=== PATIENT | female | born 1975 | race Caucasian/White ===

== ENCOUNTER 2019-11-24 12:21 | Emergency (ER) | payer OTHER ==
[2019-11-24 12:30] VITALS: BMI 25.7
--- NOTE | 2019-11-24 12:50 | PDOC ---
History of Present Illness - General Chief Complaint: Revisit, Lab Variance Stated Complaint: ABNORMAL LAB RESULT Time Seen by Provider: 11/24/19 12:49 History Source: Patient Exam Limitations: No Limitations Past History - Travel History Traveled outside of the country in the last 30 days: No Close contact w/someone who was outside of country & ill: No - Medical History Allergies/Adverse Reactions: Allergies Allergy/AdvReac Type Severity Reaction Status Date / Time No Known Allergies Allergy Verified 11/24/19 12:25 Home Medications: Ambulatory Orders NK [No Known Home Medication] 11/24/19 Anemia: Yes COPD: No Other medical history: Fibroids - Surgical History Abdominal Surgery: Yes (fibroids) - Psycho-Social/Smoking History Smoking History: Never smoked - Substance Abuse Hx (Audit-C & DAST Scrn) How often the patient has a drink containing alcohol: Monthly or less Score: In Men: 4 or > Positive; In Women: 3 or > Positive: 1 Screen Result (Pos requires Nsg. Audit-10AR): Negative In the last yr the pt used illegal drug/Rx for NonMed reason: No Score: Yes response is considered Positive: 0 Screen Result (Positive result requires Nsg. DAST-10): Negative Review of Systems - Review of Systems Able to Perform ROS?: Yes Comments:: 11/24/19 16:03 CONSTITUTIONAL: Present: Lightheaded.Absent: fever, chills, diaphoresis, generalized weakness, malaise, loss of appetite HEENT: Absent: rhinorrhea, nasal congestion, throat pain, throat swelling, difficulty swallowing, mouth swelling, ear pain, eye pain, visual Changes CARDIOVASCULAR: Absent: chest pain, loss of consciousness, palpitations, irregular heart rate, peripheral edema RESPIRATORY: Absent: cough, shortness of breath, dyspnea with exertion, orthopnea, wheezing, stridor, hemoptysis GASTROINTESTINAL: Absent: abdominal pain, abdominal distension, nausea, vomiting, diarrhea, constipation, melena, hematochezia GENITOURINARY: Absent: dysuria, frequency, urgency, hesitancy, hematuria, flank pain, genital pain MUSCULOSKELETAL: Absent: myalgia, arthralgia, joint swelling SKIN: Absent: rash, itching, pallor HEMATOLOGIC/IMMUNOLOGIC: Absent: easy bleeding, easy bruising, lymphadenopathy, frequent infections ENDOCRINE: Absent: unexplained weight gain, unexplained weight loss, heat intolerance, cold intolerance NEUROLOGIC: Absent: headache, focal weakness or paresthesias, dizziness, unsteady gait, seizure, mental status changes, bladder or bowel incontinence PSYCHIATRIC: Absent: anxiety, depression, suicidal or homicidal ideation, hallucinations. Is the patient limited Serbian proficient: No *Physical Exam - Vital Signs Last Vital Signs Temp Pulse Resp BP Pulse Ox 97.4 F L 74 16 109/65 98 11/24/19 12:26 11/24/19 12:26 11/24/19 12:11/24/19 12:11/24/19 12:26 - Physical Exam 11/24/19 16:04 GENERAL: Well developed, well nourished. Awake and alert. No acute distress. HEENT: Normocephalic, atraumatic. PERRLA, EOMI. (+) conjunctival pallor. Sclera are non-icteric. Moist mucous membranes. Oropharynx is clear. NECK: Supple. Full ROM. No JVD. Carotid pulses 2+ and symmetric, without bruits. No thyromegaly. No lymphadenopathy. CARDIOVASCULAR: Regular rate and rhythm. No murmurs, rubs, or gallops. Distal pulses are 2+ and symmetric. PULMONARY: No evidence of respiratory distress. Lungs clear to auscultation bilaterally. No wheezing, rales or rhonchi. ABDOMINAL: Soft. Non-tender. Non-distended. No rebound or guarding. No organomegaly. Normoactive bowel sounds. MUSCULOSKELETAL Normal range of motion at all joints. No bony deformities or tenderness. No CVA tenderness. EXTREMITIES: No cyanosis. No clubbing. No edema. No calf tenderness. SKIN: Warm and dry. Normal capillary refill. No rashes. No jaundice. NEUROLOGICAL: Alert, awake, appropriate. Cranial nerves 2-12 intact. No deficits to light touch and temperature in face, upper extremities and lower extremities. No motor deficits in the in face, upper extremities and lower extremities. Normoreflexic in the upper and lower extremities. Normal speech. Toes are down-going bilaterally. Gait is normal without ataxia. PSYCHIATRIC: Cooperative. Good eye contact. Appropriate mood and affect. ED Treatment Course - LABORATORY CBC & Chemistry Diagram: 11/24/19 13:30 11/24/19 13:30 Medical Decision Making - Medical Decision Making 11/24/19 17:03 The patient is a 44-year-old female past medical history of anemia, uterine fibroids, presents to the ER today after receiving a phone call from her primary care doctor regarding a low hemoglobin. She states that her PCP told her her hemoglobin was 7.9 in the office and she may require transfusion. She is here for repeat blood test. She notes that she had a heavy menstrual cycle last week which has since stopped. She is not actively bleeding. She states she has had low blood counts in the past given her dysfunctional uterine bleeding, however has never needed transfusion before. She states she has been lightheaded. Denies palpitations, shortness of breath on exertion, chest pain, loss of consciousness, nausea and vomiting. A/P: Anemia On exam patient does have pale conjunctiva, however rest of exam is unremarkable. Repeat lab work shows a hemoglobin of 8.7. Does not meet transfusion requirements at this time. 1 L of fluids given with relief of symptoms of her lightheadedness. Troponin negative. EKG: Rate 60 bpm, normal sinus rhythm. Normal intervals and axis. No acute ST- T wave changes. Overall normal EKG. Advised patient to take supplemental iron and follow-up with her primary care doctor/[facility] Hemoglobin likely rebounding now that her menstrual cycle has ended. Discharge home I discussed the physical exam findings, ancillary test results and final diagnoses with the patient. I answered all of the patient's questions. The patient was satisfied with the care received and felt comfortable with the d ischarge plan and treatment plan. The Patient agrees to follow up with the primary care physician/specialist within 24-72 hours. Return precautions were given. Discharge - Discharge Information Problems reviewed: Yes Clinical Impression/Diagnosis: Anemia Qualifiers: Anemia type: iron deficiency Iron deficiency anemia type: unspecified iron deficiency Qualified Code(s): D50.9 - Iron deficiency anemia, unspecified Condition: Stable Disposition: HOME - Admission No - Follow up/Referral Referrals: Melida Lopez DO [Primary Care Provider] - - Patient Discharge Instructions Patient Printed Discharge Instructions: Anemia: How Food and Vitamins Can Help, DI for Iron Deficiency Anemia-Adult Additional Instructions: You were seen today to have your lab redrawn after having a reported low hemoglobin in your doctor's office. Your hemoglobin today was 8.6. This does not require a transfusion at this time. Please eat foods high in iron, a list has been provided to you. Please follow-up with your [facility]ING [facility]INEER given your history of fibroids and heavy menstrual cycles. Please follow-up with your primary care doctor this week. Return to the ER for palpitations/irregular heartbeats, lightheadedness, dizziness, shortness of breath with exertion, swelling to your legs or if you have any changes in your symptoms. Hoy se le conner redibujar k[facility]by laboratorio despus de tener rosalinda hemoglobina baja reportada en el consultorio de k[facility] mdico. Tu hemoglobina hoy era 8.6. [place] no requiere rosalinda transfusin en rebecca momento. Por favor, coma alimentos ricos en richelle, se le waggoner proporcionado rosalinda lista. Por favor, mariah un seguimiento con kirby obstetra/gineclogo dado kirby historial de fibromas y ciclos menstruales pesados. Por favor, mariah un seguimiento con kirby mdico de atencin primaria esta semana. Vuelva a urgencias para ishaan palpitaciones/latidos cardacos irregulares, mareos, mareos, dificultad para respirar con esfuerzo, hinchazn en las piernas o si tiene algn cambio en los sntomas. - Post Discharge Activity Work/Back to School Note: Back to Work
[2019-11-24 13:59] LABS: BASO % 0.5 % (0-2.0); EOS % 1.7 % (0-4.5); HEMOGLOBIN 8.7 GM/dL (10.7-15.3); LYMPH % 39.1 % (8-40); MCH 19.3 pg (25.7-33.7); MEAN CELL VOLUME 66.7 fl (80-96); MEAN PLT VOLUME 8.9 fl (7.5-11.1); MONO % 8.7 % (3.8-10.2); PLATELET COUNT 376 K/MM3 (134-434); RDW 19.7 % (11.6-15.6); WHITE BLOOD COUNT 4.5 K/mm3 (4.0-10.0)
[2019-11-24 14:04] LABS: INR 1.01 (0.83-1.09); PROTHROMBIN TIME (PATIENT) 11.9 SEC (9.7-13.0)
[2019-11-24 14:14] LABS: EPI CELLS >36 /uL (0-25.1); HYALINE CASTS 3 /uL (0-3.1); PH,URINE 5.5 (5.0-8.0); URINE APPEARANCE CLEAR; URINE BACTERIA 642 /uL (0-1359); URINE BILIRUBIN NEGATIVE (NEGATIVE); URINE COLOR YELLOW; URINE GLUCOSE (UA) NEGATIVE (NEGATIVE); URINE KETONE NEGATIVE (NEGATIVE); URINE LEUK ESTERASE 1+ (NEGATIVE); URINE NITRITE NEGATIVE (NEGATIVE); URINE PROTEIN NEGATIVE (NEGATIVE); URINE RBC 7 /uL (0-23.9); URINE UROBILINOGEN 0.2 mg/dL (0.2-1.0); URINE WBC 81 /uL (0-25.8)
[2019-11-24] MEDS ORDERED: SODIUM CHLORIDE 1,000 ML IV STA (14:25)
[2019-11-24 14:40] LABS: ANISOCYTOSIS 1+; MACROCYTOSIS 0; OVALOCYTE 1+; PLATELET ESTIMATE NORMAL
[2019-11-24 14:43] LABS: ALBUMIN 3.8 g/dl (3.4-5.0); ALK PHOS 61 U/L (45-117); ANION GAP 9 MMOL/L (8-16); BILIRUBIN,TOTAL 0.2 mg/dL (0.2-1); BLOOD UREA NITROGEN 15.3 mg/dL (7-18); CALCIUM 8.8 mg/dL (8.5-10.1); CHLORIDE 105 mmol/L (98-107); CO2 26 mmol/L (21-32); CREATININE 0.9 mg/dL (0.55-1.3); GLUCOSE,RANDOM 76 mg/dL (74-106); POTASSIUM 3.9 mmol/L (3.5-5.1); SGOT/AST 16 U/L (15-37); SGPT/ALT 24 U/L (13-61); SODIUM 139 mmol/L (136-145); TOT PROT 7.9 g/dl (6.4-8.2)
[2019-11-24 15:45] VITALS: BP 110/64; PULSE 78; TEMP 98.5
--- NOTE | 2019-11-26 09:25 | EKG ---
Test Reason : Blood Pressure : / mmHG Vent. Rate : 068 BPM Atrial Rate : 068 BPM P-R Int : 172 ms QRS Dur : 086 ms QT Int : 396 ms P-R-T Axes : 043 053 023 degrees QTc Int : 421 ms NORMAL SINUS RHYTHM NORMAL ECG WHEN COMPARED WITH ECG OF 19-JAN-2011 08:06, NO SIGNIFICANT CHANGE WAS FOUND Confirmed by Sveta Mcintosh ([id number]) on 11/26/2019 9:24:44 AM Referred By: Confirmed By:Sveta Mcintosh
== END 2019-11-24 15:46 | disposition home or self-care (01) ==
LOC: JER 12:21
PROC: 3E0337Z Introduction of Electrolytic and Water Balance Substance into Peripheral Vein, Percutaneous Approach (ICD-10-PCS; principal; 2019-11-24)
DX: D50.9 Iron deficiency anemia, unspecified (principal)
CPT/HCPCS: 36415; 71046-TC-FY; 80053; 81003; 82550; 84484; 85025; 85610; 86850; 86900; 86901; 93005; 93010; 99285-25

== ENCOUNTER 2021-07-08 14:00 | Inpatient (IN) | payer OTHER ==
[2021-08-03 16:39] VITALS: BMI 29.1
[2021-08-05] MEDS ORDERED: BUPIVACAINE LIPOSOME/PF (EXPAREL) 266 MG/20 ML VIAL ONE (12:31)
[2021-08-05] MEDS ORDERED: BUPIVACAINE HCL/PF 0.5% (5MG/ML) 10 ML VIAL ONE (12:31)
[2021-08-05] MEDS ORDERED: MIDAZOLAM HCL 2 MG/2 ML SINGLE DOSE VIAL ONE ×2 (13:16)
[2021-08-05] MEDS ORDERED: ceFAZolin SODIUM 1 GM VIAL IVPB ONE (13:50)
[2021-08-05] MEDS ORDERED: ACETAMINOPHEN INJECTION 100 ML IVPB ONE (13:52)
[2021-08-05] MEDS ORDERED: SUCCINYLCHOLINE CHLORIDE 200 MG/10 ML SYRINGE ONE (14:01)
[2021-08-05] MEDS ORDERED: PROPOFOL 20 ML ONE (14:01)
[2021-08-05] MEDS ORDERED: ALBUMIN HUMAN 5% 250 ML IV SOLUTION IV ONE (14:45)
[2021-08-05] MEDS ORDERED: IBUPROFEN 600 MG TABLET (FP) PO PRN (16:35)
[2021-08-05] MEDS ORDERED: ONDANSETRON 4 MG/2 ML VIAL IM PRN (16:35)
[2021-08-05] MEDS ORDERED: ACETAMINOPHEN 325 MG TABLET (FP) PO PRN (16:35)
[2021-08-05] MEDS ORDERED: diphenhydrAMINE HCL 25 MG CAPSULE (FP) PO PRN (16:36)
[2021-08-05] MEDS ORDERED: KETOROLAC TROMETHAMINE 30 MG/1 ML VIAL ONE (17:14)
[2021-08-05] MEDS: KETOROLAC TROMETHAMINE 30 MG/1 ML VIAL IVPUSH SCH (17:15)
[2021-08-05 17:57] LABS: HEMATOCRIT 29.5 % (32.4-45.2); HEMOGLOBIN 9.9 GM/dL (10.7-15.3); MCH 31.2 pg (25.7-33.7); MCHC 33.5 g/dl (32.0-36.0); MEAN CELL VOLUME 93.3 fl (80-96); MEAN PLT VOLUME 8.7 fl (7.5-11.1); PLATELET COUNT 133 10^3/uL (134-434); RBC 3.16 M/mm3 (3.60-5.2); RDW 20.7 % (11.6-15.6); WHITE BLOOD COUNT 8.9 K/mm3 (4.0-10.0)
[2021-08-05] MEDS: LACTATED RINGERS SOLUTION 1,000 ML IV SCH (18:15)
[2021-08-05] MEDS: oxyCODONE HCL 5 MG TABLET PO PRN ×2 (19:16→23:50)
[2021-08-05] MEDS: ZOLPIDEM TARTRATE 5 MG TABLET PO PRN (21:24)
[2021-08-06] MEDS: KETOROLAC TROMETHAMINE 30 MG/1 ML VIAL IVPUSH SCH ×2 (02:04→10:06)
[2021-08-06] MEDS ORDERED: ONDANSETRON 4 MG/2 ML VIAL IVPUSH PRN (08:45)
[2021-08-06 08:46] LABS: BASO % 0.1 % (0-2.0); EOS % 0.2 % (0-4.5); HEMATOCRIT 28.4 % (32.4-45.2); HEMOGLOBIN 9.4 GM/dL (10.7-15.3); LYMPH % 21.6 % (8-40); MCH 31.1 pg (25.7-33.7); MEAN CELL VOLUME 94.1 fl (80-96); MEAN PLT VOLUME 9.2 fl (7.5-11.1); MONO % 7.4 % (3.8-10.2); NEUT % 70.7 % (42.8-82.8); PLATELET COUNT 142 10^3/uL (134-434); RBC 3.02 M/mm3 (3.60-5.2); RDW 20.9 % (11.6-15.6); WHITE BLOOD COUNT 6.9 K/mm3 (4.0-10.0)
[2021-08-06 09:03] LABS: CALCIUM 7.7 mg/dL (8.5-10.1)
[2021-08-06 09:04] LABS: BLOOD UREA NITROGEN 6.4 mg/dL (7-18)
[2021-08-06 09:07] LABS: CREATININE 0.6 mg/dL (0.55-1.3)
[2021-08-06] MEDS: LACTATED RINGERS SOLUTION 1,000 ML IV SCH ×3 (09:19→18:53)
[2021-08-06 09:33] LABS: ANISOCYTOSIS 1+; MACROCYTOSIS 1+
[2021-08-06] MEDS: oxyCODONE HCL 5 MG TABLET PO PRN ×2 (14:25→19:45)
[2021-08-06] MEDS: SIMETHICONE 80 MG TAB.CHEW (FP) PO PRN ×3 (14:49→21:59)
[2021-08-06] MEDS: ZOLPIDEM TARTRATE 5 MG TABLET PO PRN (21:59)
[2021-08-07] MEDS: oxyCODONE HCL 5 MG TABLET PO PRN ×3 (02:15→21:44)
[2021-08-07] MEDS: SIMETHICONE 80 MG TAB.CHEW (FP) PO PRN ×2 (10:34→22:01)
[2021-08-07] MEDS: IBUPROFEN 600 MG TABLET (FP) PO SCH ×2 (14:20→20:00)
[2021-08-07] MEDS: LACTATED RINGERS SOLUTION 1,000 ML IV SCH (20:00)
[2021-08-08] MEDS: ZOLPIDEM TARTRATE 5 MG TABLET PO PRN (00:44)
[2021-08-08] MEDS: IBUPROFEN 600 MG TABLET (FP) PO SCH ×2 (01:16→07:36)
[2021-08-08] MEDS: LACTATED RINGERS SOLUTION 1,000 ML IV SCH (06:00)
[2021-08-08 09:58] VITALS: BP 109/65; PULSE 85; TEMP 98.4
== END 2021-08-08 11:41 | disposition home or self-care (01) | DRG 519 ==
LOC: J2C 08-05 04:17 → J8W 08-05 18:41
PROVIDERS: ADMIT Obstetrics & Gynecology; ATTEND Obstetrics & Gynecology
PROC: 0UT50ZZ Resection of Right Fallopian Tube, Open Approach (ICD-10-PCS; 2021-08-05)
PROC: 0UTC0ZZ Resection of Cervix, Open Approach (ICD-10-PCS; 2021-08-05)
PROC: 0DNW0ZZ Release Peritoneum, Open Approach (ICD-10-PCS; 2021-08-05)
PROC: 0DNU0ZZ Release Omentum, Open Approach (ICD-10-PCS; 2021-08-05)
PROC: 0UT90ZZ Resection of Uterus, Open Approach (ICD-10-PCS; principal; 2021-08-05 13:00)
DX: D25.9 Leiomyoma of uterus, unspecified (principal); D64.9 Anemia, unspecified; N72 Inflammatory disease of cervix uteri; J44.9 Chronic obstructive pulmonary disease, unspecified; J45.909 Unspecified asthma, uncomplicated; K66.0 Peritoneal adhesions (postprocedural) (postinfection); N93.8 Other specified abnormal uterine and vaginal bleeding
CPT/HCPCS: 36415; 80048; 81025; 85025; 85027; 86850; 86900; 86901; 88307-TC; 94010; 94760

== ENCOUNTER 2021-07-08 20:16 | Emergency (ER) | payer OTHER ==
[2021-07-08 20:24] VITALS: TEMP 98.3; BMI 29.1
[2021-07-08 21:41] LABS: BASO % 0.3 % (0-2.0); EOS % 1.9 % (0-4.5); HEMATOCRIT 35.7 % (32.4-45.2); HEMOGLOBIN 11.9 GM/dL (10.7-15.3); LYMPH % 30.1 % (8-40); MCH 29.8 pg (25.7-33.7); MCHC 33.3 g/dl (32.0-36.0); MEAN CELL VOLUME 89.5 fl (80-96); MEAN PLT VOLUME 8.9 fl (7.5-11.1); MONO % 8.3 % (3.8-10.2); NEUT % 59.4 % (42.8-82.8); PLATELET COUNT 167 10^3/uL (134-434); RBC 3.99 M/mm3 (3.60-5.2); RDW 20.3 % (11.6-15.6); WHITE BLOOD COUNT 5.9 K/mm3 (4.0-10.0)
[2021-07-08 21:48] LABS: INR 1.09 (0.83-1.09); PROTHROMBIN TIME (PATIENT) 12.5 SEC (9.7-13.0)
[2021-07-08 21:50] LABS: ACTIVATED PTT 29.5 SECONDS (25.2-36.5)
[2021-07-08 21:54] LABS: BLOOD UREA NITROGEN 13.1 mg/dL (7-18); CALCIUM 7.8 mg/dL (8.5-10.1)
[2021-07-08 21:55] LABS: ALBUMIN 3.5 g/dl (3.4-5.0)
[2021-07-08 21:58] LABS: CREATININE 0.8 mg/dL (0.55-1.3)
[2021-07-08 21:59] LABS: BILIRUBIN,TOTAL 0.1 mg/dL (0.2-1); TOT PROT 6.6 g/dl (6.4-8.2)
[2021-07-08 22:11] VITALS: BP 107/60; PULSE 72
[2021-07-08 22:12] LABS: EPI CELLS >36 /uL (0-25.1); HYALINE CASTS 8 /uL (0-3.1); PH,URINE 5.5 (5.0-8.0); URINE APPEARANCE TURBID; URINE BACTERIA 2 /uL (0-1359); URINE BILIRUBIN NEGATIVE (NEGATIVE); URINE COLOR RED; URINE GLUCOSE (UA) NEGATIVE (NEGATIVE); URINE KETONE NEGATIVE (NEGATIVE); URINE LEUK ESTERASE 2+ (NEGATIVE); URINE NITRITE NEGATIVE (NEGATIVE); URINE PROTEIN 1+ (NEGATIVE); URINE RBC 28320 /uL (0-23.9); URINE UROBILINOGEN 0.2 mg/dL (0.2-1.0); URINE WBC 285 /uL (0-25.8)
== END 2021-07-08 22:11 | disposition home or self-care (01) ==
LOC: JER 20:16
DX: N93.9 Abnormal uterine and vaginal bleeding, unspecified (principal)
CPT/HCPCS: 36415; 80053; 81003; 83735; 84703; 85025; 85610; 85730; 86850; 86900; 86901; 87086; 99284-25

== ENCOUNTER 2021-07-26 11:59 | Emergency (ER) | payer OTHER ==
[2021-07-26 12:05] VITALS: BP 116/70; PULSE 62; TEMP 97; BMI 29.4
[2021-07-26 12:49] LABS: EPI CELLS 26 /uL (0-25.1); HYALINE CASTS 1 /uL (0-3.1); URINE APPEARANCE CLEAR; URINE BACTERIA 73 /uL (0-1359); URINE BILIRUBIN NEGATIVE (NEGATIVE); URINE COLOR YELLOW; URINE GLUCOSE (UA) NEGATIVE (NEGATIVE); URINE KETONE NEGATIVE (NEGATIVE); URINE LEUK ESTERASE 1+ (NEGATIVE); URINE NITRITE NEGATIVE (NEGATIVE); URINE PROTEIN NEGATIVE (NEGATIVE); URINE RBC 13 /uL (0-23.9); URINE UROBILINOGEN 0.2 mg/dL (0.2-1.0); URINE WBC 67 /uL (0-25.8)
[2021-07-26 13:14] LABS: HCG,QUALITATIVE URINE NEGATIVE
== END 2021-07-26 13:00 | disposition home or self-care (01) ==
LOC: JER 11:59 → JERFT 11:59
DX: R30.0 Dysuria (principal); D25.9 Leiomyoma of uterus, unspecified
CPT/HCPCS: 81003; 84703; 87086; 99283-25

== ENCOUNTER 2022-12-08 09:59 | Day surgery (SDC) | payer OTHER ==
[2022-11-25 14:05] VITALS: BMI 28.3
[2022-12-08 16:08] VITALS: TEMP 97
[2022-12-08 16:15] VITALS: RESP 18
[2022-12-08 16:27] VITALS: BP 105/68; PULSE 63
== END 2022-12-08 12:40 | disposition home or self-care (01) ==
LOC: FASU-ENDO 09:59
PROVIDERS: ATTEND Internal Medicine Gastroenterology
PROC: 0DB68ZX Excision of Stomach, Via Natural or Artificial Opening Endoscopic, Diagnostic (ICD-10-PCS; 2022-12-08)
PROC: 0DB48ZX Excision of Esophagogastric Junction, Via Natural or Artificial Opening Endoscopic, Diagnostic (ICD-10-PCS; 2022-12-08)
PROC: 0DB98ZX Excision of Duodenum, Via Natural or Artificial Opening Endoscopic, Diagnostic (ICD-10-PCS; principal; 2022-12-08 11:58)
DX: K29.50 Unspecified chronic gastritis without bleeding (principal); K21.00 Gastro-esophageal reflux disease with esophagitis, without bleeding; R10.13 Epigastric pain
CPT/HCPCS: 88305-TC; 88342-TC

== ENCOUNTER 2023-02-23 10:56 | Day surgery (SDC) | payer OTHER ==
[2023-02-21 16:37] VITALS: BMI 28.3
[2023-02-23 12:19] VITALS: TEMP 98.2
[2023-02-23 12:22] VITALS: BP 110/69; PULSE 61; RESP 19
== END 2023-02-23 12:30 | disposition home or self-care (01) ==
LOC: FASU-ENDO 10:56
PROVIDERS: ATTEND Internal Medicine Gastroenterology
PROC: 0DBH8ZX Excision of Cecum, Via Natural or Artificial Opening Endoscopic, Diagnostic (ICD-10-PCS; principal; 2023-02-23 11:53)
DX: Z12.11 Encounter for screening for malignant neoplasm of colon (principal); K63.5 Polyp of colon; K64.1 Second degree hemorrhoids
CPT/HCPCS: 88305-TC

== ENCOUNTER 2023-04-05 03:20 | Emergency (ER) | payer OTHER ==
[2023-04-05 03:29] VITALS: BMI 29.1
[2023-04-05] MEDS ORDERED: ACETAMINOPHEN 1000 MG/100 ML BAG IVPB ONE (04:24)
[2023-04-05] MEDS ORDERED: LIDOCAINE 5% TOPICAL PATCH TP ONE (04:24)
[2023-04-05] MEDS ORDERED: ACETAMINOPHEN INJECTION 100 ML IVPB ONE (04:49)
[2023-04-05] MEDS ORDERED: LIDOCAINE 4% PATCH TP ONE (04:49)
[2023-04-05] MEDS ORDERED: DEXAMETHASONE SOD PHOSPHATE 10 MG/1 ML VIAL IVPUSH ONE (05:31)
[2023-04-05] MEDS ORDERED: METHOCARBAMOL 500 MG TABLET PO ONE (05:32)
[2023-04-05 05:35] LABS: BASO % 0.2 % (0-2.0); EOS % 1.4 % (0-4.5); HEMATOCRIT 44.4 % (32.4-45.2); HEMOGLOBIN 14.4 GM/dL (10.7-15.3); LYMPH % 44.9 % (8-40); MCH 30.5 pg (25.7-33.7); MCHC 32.4 g/dl (32.0-36.0); MEAN CELL VOLUME 94.2 fl (80-96); MEAN PLT VOLUME 8.7 fl (7.5-11.1); MONO % 8.7 % (3.8-10.2); NEUT % 44.8 % (42.8-82.8); PLATELET COUNT 182 10^3/uL (134-434); RBC 4.72 M/mm3 (3.60-5.2); RDW 14.5 % (11.6-15.6); WHITE BLOOD COUNT 5.6 K/mm3 (4.0-10.0)
[2023-04-05 05:45] LABS: POTASSIUM 3.8 mmol/L (3.5-5.1)
[2023-04-05 05:49] LABS: ALBUMIN 3.5 g/dl (3.4-5.0); BLOOD UREA NITROGEN 20.7 mg/dL (7-18); CALCIUM 8.7 mg/dL (8.5-10.1)
[2023-04-05 05:52] LABS: CREATININE 0.7 mg/dL (0.55-1.3)
[2023-04-05 05:54] LABS: BILIRUBIN,TOTAL 0.4 mg/dL (0.2-1); TOT PROT 7.3 g/dl (6.4-8.2)
[2023-04-05] MEDS ORDERED: METHOCARBAMOL 500 MG TABLET ONE ×2 (05:59)
[2023-04-05] MEDS ORDERED: DEXAMETHASONE SOD PHOSPHATE 10 MG/1 ML VIAL ONE (05:59)
[2023-04-05 06:20] VITALS: BP 119/65; PULSE 59; RESP 16; TEMP 98.7
[2023-04-05] MEDS ORDERED: LIDOCAINE PATCH REMOVAL MC ONE (16:00)
== END 2023-04-05 07:49 | disposition home or self-care (01) ==
LOC: JER 03:20
PROC: 3E033NZ Introduction of Analgesics, Hypnotics, Sedatives into Peripheral Vein, Percutaneous Approach (ICD-10-PCS; principal; 2023-04-05)
PROC: 3E033GC Introduction of Other Therapeutic Substance into Peripheral Vein, Percutaneous Approach (ICD-10-PCS; 2023-04-05)
DX: S29.012A Strain of muscle and tendon of back wall of thorax, initial encounter (principal); M62.838 Other muscle spasm; X58.XXXA Exposure to other specified factors, initial encounter; Y92.9 Unspecified place or not applicable
CPT/HCPCS: 36415; 70450-TC; 71046-TC-FY; 72125-TC; 80053; 83690; 84484; 84703; 85025; 93005; 93010; 96374; 96375; 99285-25; J1100

== ENCOUNTER 2024-01-05 19:48 | Emergency (ER) | payer OTHER ==
[2024-01-05 20:06] VITALS: TEMP 97.7; BMI 29.9
[2024-01-05] MEDS ORDERED: ACETAMINOPHEN 325 MG TABLET (FP) ONE (20:37)
[2024-01-05 20:38] LABS: BASO % 0.5 % (0-2.0); EOS % 1.3 % (0-4.5); HEMATOCRIT 41.9 % (32.4-45.2); HEMOGLOBIN 14.3 GM/dL (10.7-15.3); LYMPH % 40.8 % (8-40); MCH 31.3 pg (25.7-33.7); MEAN CELL VOLUME 91.9 fl (80-96); MEAN PLT VOLUME 8.6 fl (7.5-11.1); MONO % 9.7 % (3.8-10.2); NEUT % 47.7 % (42.8-82.8); PLATELET COUNT 197 10^3/uL (134-434); RBC 4.56 M/mm3 (3.60-5.2); RDW 14.7 % (11.6-15.6); WHITE BLOOD COUNT 6.2 K/mm3 (4.0-10.0)
[2024-01-05] MEDS: ACETAMINOPHEN 325 MG TABLET (FP) PO ONE (20:43)
[2024-01-05 21:07] LABS: POTASSIUM 4.1 mmol/L (3.5-5.1)
[2024-01-05 21:09] LABS: ALBUMIN 3.7 g/dl (3.4-5.0); CALCIUM 9.2 mg/dL (8.5-10.1)
[2024-01-05 21:10] LABS: BLOOD UREA NITROGEN 16.6 mg/dL (7-18); MAGNESIUM 2.2 mg/dL (1.8-2.4)
[2024-01-05 21:13] LABS: CREATININE 0.9 mg/dL (0.55-1.3)
[2024-01-05 21:14] LABS: BILIRUBIN,TOTAL 0.2 mg/dL (0.2-1); TOT PROT 7.5 g/dl (6.4-8.2)
[2024-01-05 22:52] VITALS: BP 126/81; PULSE 57; RESP 18
== END 2024-01-05 23:17 | disposition home or self-care (01) ==
LOC: JER 19:48
DX: R07.89 Other chest pain (principal); M25.512 Pain in left shoulder; G89.29 Other chronic pain
CPT/HCPCS: 36415; 71046-TC-FY; 80053; 83735; 84484; 85025; 93005; 93010; 99285-25